=== PATIENT | male | born 1965 | race Caucasian/White ===

== ENCOUNTER 2021-12-28 06:13 | Observation (INO) ==
[2021-12-28] MEDS ORDERED: CeFAZolin Syr 2,000MG/20 ML 2,000 MG/20 ML SYRINGE IVPB ONE (06:51)
[2021-12-28] MEDS ORDERED: Pregabalin 75 MG CAPSULE PO ONE ×2 (07:00→13:15)
[2021-12-28] MEDS ORDERED: *HR* OxyCODONE Immed Rel 5 MG TABLET PO ONE (07:00)
[2021-12-28] MEDS ORDERED: Famotidine 20 MG TABLET PO ONE (07:00)
[2021-12-28] MEDS ORDERED: Ringers Solution, Lactated 1,000 ML IVC SCH (07:00)
[2021-12-28] MEDS ORDERED: *HR* FentaNYL (PF) 100 MCG/2 ML VIAL ONE (07:07)
[2021-12-28] MEDS ORDERED: *HR* Propofol 200 MG/20 ML VIAL IVP ONE (07:07)
[2021-12-28] MEDS ORDERED: *HR* Midazolam HCl 2 MG/2 ML VIAL ONE (07:07)
[2021-12-28] MEDS ORDERED: *HR* Remifentanil 2 MG VIAL IVP ONE (07:07)
[2021-12-28] MEDS ORDERED: Vancomycin 1,000 MG VIAL ONE (07:17)
[2021-12-28] MEDS: tiZANidine 4 MG TABLET PO SCH ×2 (07:23→13:18)
[2021-12-28] MEDS ORDERED: *HR* Succinylcholine 200 MG/10 ML VIAL IVP ONE (07:29)
[2021-12-28] MEDS ORDERED: *HR* Rocuronium Bromide 50 MG/5 ML VIAL ONE (07:29)
[2021-12-28] MEDS ORDERED: Lidocaine -MPF 2% 5 ML VIAL ONE (07:29)
[2021-12-28] MEDS ORDERED: *HR* Phenylephrine 10 MG/ML VIAL ONE (07:29)
[2021-12-28] MEDS ORDERED: Ondansetron 4 MG/2 ML VIAL ONE ×2 (07:29→09:40)
[2021-12-28] MEDS ORDERED: EPHEDrine 50 MG/ML VIAL ONE (08:22)
[2021-12-28] MEDS ORDERED: Sugammadex Sodium 200 MG/2 ML VIAL IV ONE (09:04)
[2021-12-28] MEDS ORDERED: *HR* Remifentanil 1 MG VIAL IVP ONE ×2 (10:22→11:43)
[2021-12-28] MEDS ORDERED: Ondansetron 4 MG/2 ML VIAL IVP PRN ×2 (10:55→14:46)
[2021-12-28] MEDS ORDERED: *HR* HYDROmorphone PF 0.5 MG/0.5 ML SYRINGE IVP PRN (10:55)
[2021-12-28] MEDS ORDERED: *HR* HYDROMORPHONE 2 MG/ML VIAL ONE (12:13)
[2021-12-28] MEDS ORDERED: Acetaminophen IV 1,000 MG/100 ML BAG IVPB ONE (13:15)
[2021-12-28] MEDS ORDERED: *HR* OxyCODONE Immed Rel 5 MG TABLET PO PRN ×2 (14:08→14:46)
[2021-12-28] MEDS ORDERED: Naloxone 0.4 MG/ML INJ IVP PRN (14:46)
[2021-12-28] MEDS: CeFAZolin 2 GM/120 ML BAG IVPB SCH ×2 (15:47→23:24)
[2021-12-28] MEDS: Ringers Solution, Lactated 1,000 ML IVC SCH (17:06)
[2021-12-28] MEDS: *HR* HYDROcodone/Acet 5/325 mg TABLET PO PRN (20:39)
[2021-12-29] MEDS: Ringers Solution, Lactated 1,000 ML IVC SCH ×3 (02:05→20:34)
[2021-12-29] MEDS: Acetaminophen 325 MG TABLET PO PRN ×2 (08:53→18:36)
[2021-12-29] MEDS: tiZANidine 4 MG TABLET PO PRN (12:14)
[2021-12-29] MEDS ORDERED: polyethylene glycoL 3350 17 GM POWD.PACK PO PRN (14:44)
[2021-12-29] MEDS ORDERED: Simethicone 80 MG TAB.CHEW PO PRN (14:44)
[2021-12-30] MEDS: Acetaminophen 325 MG TABLET PO PRN (00:23)
[2021-12-30] MEDS: *HR* HYDROcodone/Acet 5/325 mg TABLET PO PRN (03:08)
[2021-12-30] MEDS: Ringers Solution, Lactated 1,000 ML IVC SCH (03:58)
[2021-12-30 05:51] VITALS: BP 127/70; PULSE 85; TEMP 98.1; O2SAT 92
[2021-12-30] MEDS: tiZANidine 4 MG TABLET PO PRN (06:30)
== END 2021-12-30 13:12 | disposition home or self-care (01) ==
LOC: 4WAOSI 06:13 → SDCAOSI 06:13 → 4WAOSI 14:41
PROVIDERS: ADMIT Orthopaedic Surgery Orthopaedic Surgery of the Spine; ATTEND Orthopaedic Surgery Orthopaedic Surgery of the Spine